=== PATIENT | female | born 1970 | race Caucasian/White ===

== ENCOUNTER 2016-12-07 20:09 | Emergency (ER) | payer SELFPAY ==
[~2016-12-07] VITALS: Ht 157.5 cm; Wt 88.0 kg
[~2016-12-07 20:09] MED LIST: NO MEDS; TYLENOL
[2016-12-08] MEDS ORDERED: DIPHENHYDRAMINE 25MG CAPSULE PO ONE (03:45)
[2016-12-08] MEDS ORDERED: METOCLOPRAMIDE HCL 10MG TABLET PO ONE (03:45)
[2016-12-08] MEDS ORDERED: KETOROLAC 60MG/2ML VIAL IM ONE (03:45)
[2016-12-08 03:58] VITALS: BP 124/75
== END 2016-12-08 05:10 | disposition home or self-care (01) ==
LOC: ER 20:10
DX: R51 Headache (principal); Z98.890 Other specified postprocedural states
CPT/HCPCS: 81025; 96372; 99283; J1885; J8597; Q0163

== ENCOUNTER 2016-12-09 15:09 | Emergency (ER) | payer SELFPAY ==
[~2016-12-09] VITALS: Ht 162.6 cm; Wt 81.0 kg
[2016-12-09] MEDS ORDERED: METOCLOPRAMIDE HCL 10MG/2ML VIAL IV ONE (18:45)
[2016-12-09] MEDS ORDERED: KETOROLAC 30MG/ML VIAL IV ONE (18:45)
[2016-12-09] MEDS ORDERED: DIPHENHYDRAMINE 50MG/ML VIAL IV ONE (18:45)
[2016-12-09 19:39] LABS: BASOPHILS % 0.5 % (0.0-2.0); EOSINOPHILS % 1.2 % (0.0-5.0); HEMATOCRIT. 30.5 % (36.0-48.0); HEMOGLOBIN. 9.8 g/dL (12.0-16.0); LYMPHOCYTES % 44.6 % (20.0-50.0); MEAN CORPUSCULAR HEMOGLOBIN 24.3 pg (28.0-32.0); MEAN PLATELET VOLUME 7.1 fl (7.4-10.4); MONOCYTES % 5.3 % (2.0-8.0); NEUTROPHILS % 48.4 % (40.0-76.0); PLATELET 255 x1000/uL (130-400); RED BLOOD CELL COUNT 4.01 mill/uL (4.2-5.4); RED CELL DISTRIBUTION WIDTH 17.5 % (11.6-14.6)
[2016-12-09 19:40] LABS: CHLORIDE 107 mEq/L (98-107)
[2016-12-09 19:47] LABS: CARBON DIOXIDE 26 mEq/L (21-32)
[2016-12-09 19:50] VITALS: BP 133/72
== END 2016-12-09 22:00 | disposition home or self-care (01) ==
LOC: ER 16:27
DX: R51 Headache (principal); R42 Dizziness and giddiness; R20.0 Anesthesia of skin
CPT/HCPCS: 36415; 70450; 80048; 81025; 85025; 96374; 96375; 99285; J1200; J1885; J2765

== ENCOUNTER 2017-04-18 21:10 | Emergency (ER) | payer SELFPAY ==
[~2017-04-18] VITALS: Ht 157.5 cm; Wt 92.0 kg
[2017-04-19 00:15] VITALS: BP 137/62
== END 2017-04-19 01:05 | disposition home or self-care (01) ==
LOC: ER 22:33
DX: J06.9 Acute upper respiratory infection, unspecified (principal)
CPT/HCPCS: 81025; 99283

== ENCOUNTER 2021-06-03 15:53 | Emergency (ER) | payer MEDICAID ==
[~2021-06-03] VITALS: Ht 157.5 cm; Wt 100.0 kg
[2021-06-03 15:56] VITALS: BP 164/101
[2021-06-03] MEDS ORDERED: BACITRACIN ZINC OINT UDPKT TOP ONE (16:45)
[2021-06-03] MEDS ORDERED: LIDOCAINE HCL/EPINEPHRINE 1%-EPI 1:100,000 20 ML VIAL INFIL ONE (16:45)
[2021-06-03] MEDS ORDERED: ACETAMINOPHEN 325MG TABLET PO ONE (16:45)
[2021-06-03] MEDS ORDERED: TETANUS, DIPHTHERIA, PERTUSSIS VAC/PF 0.5ML (>10YR OLD) IM ONE (16:45)
[2021-06-03] MEDS ORDERED: BO1 TP (17:14)
== END 2021-06-03 17:38 | disposition home or self-care (01) ==
LOC: ER 15:53
DX: S81.812A Laceration without foreign body, left lower leg, initial encounter (principal); W26.8XXA Contact with other sharp object(s), not elsewhere classified, initial encounter; Y93.G3 Activity, cooking and baking; Y92.030 Kitchen in apartment as the place of occurrence of the external cause; E11.9 Type 2 diabetes mellitus without complications
CPT/HCPCS: 12002; 90471; 90715; 99283; J3490

== ENCOUNTER 2021-06-06 19:37 | Emergency (ER) | payer MEDICAID ==
[~2021-06-06] VITALS: Ht 157.5 cm; Wt 102.0 kg
[~2021-06-06 19:37] MED LIST changes: +BO1 TP
[2021-06-06 20:45] VITALS: BP 140/90
== END 2021-06-06 20:48 | disposition home or self-care (01) ==
LOC: ER 19:37
DX: T14.8XXD Other injury of unspecified body region, subsequent encounter (principal); X58.XXXD Exposure to other specified factors, subsequent encounter; E11.9 Type 2 diabetes mellitus without complications; Z98.890 Other specified postprocedural states
CPT/HCPCS: 99281

== ENCOUNTER 2021-06-16 10:58 | Inpatient (IN) | payer MEDICAID ==
[~2021-06-16] VITALS: Ht 157.5 cm; Wt 98.4 kg
[2021-06-16] MEDS ORDERED: NITROGLYCERIN 0.4MG TABLET SL SL PRN ×2 (11:15→17:00)
[2021-06-16] MEDS ORDERED: ASPIRIN 81MG TABLET PO ONE (11:15)
[2021-06-16] MEDS ORDERED: SODIUM CHLORIDE 0.9% 1,000 ML IV ONE (11:15)
[2021-06-16 11:48] LABS: BASOPHILS % 0.6 % (0.0-2.0); HEMATOCRIT. 40.8 % (36.0-48.0); HEMOGLOBIN. 13.9 g/dL (12.0-16.0); MEAN CORPUSCULAR HEMOGLOBIN 28.7 pg (28.0-32.0); MEAN CORPUSCULAR VOLUME 84.2 fL (81.0-99.0); MEAN PLATELET VOLUME 7.5 fl (7.4-10.4); NEUTROPHILS % 44.4 % (40.0-76.0); PLATELET 204 x1000/uL (130-400); RED BLOOD CELL COUNT 4.85 mill/uL (4.2-5.4); RED CELL DISTRIBUTION WIDTH 13.5 % (11.6-14.6)
[2021-06-16 11:55] LABS: CHLORIDE 104 mEq/L (98-107)
[2021-06-16 12:08] LABS: BETA HYDROXYBUTYRATE 0.1 mMol/L (0.0-0.3)
[2021-06-16] MEDS ORDERED: INSULIN REGULAR (HUMULIN R) 300UNITS/3ML VIAL SUBCUT ONE (13:30)
[2021-06-16 16:49] LABS: HCG SCREEN NEGATIVE
[2021-06-16] MEDS ORDERED: IPRATROPIUM/ALBUTEROL 0.5-3(2.5)MG/3ML NEB NEB PRN (17:00)
[2021-06-16] MEDS ORDERED: GUAIFENESIN 200MG/10ML SUGAR FREE UDC PO PRN (17:00)
[2021-06-16] MEDS ORDERED: ACETAMINOPHEN 325MG TABLET PO PRN (17:00)
[2021-06-16] MEDS ORDERED: NA PHOS,M-B/NA PHOS,DI-BA ENEMA 118ML PR PRN (17:00)
[2021-06-16] MEDS ORDERED: ENOXAPARIN 40MG/0.4ML SYR SUBCUT SCH (17:00)
[2021-06-16] MEDS ORDERED: MAGNESIUM/ALUMINUM HYDROXIDE/SIMETHICONE 30ML UDC PO PRN (17:00)
[2021-06-16] MEDS ORDERED: ZOLPIDEM TARTRATE 5MG TABLET PO PRN (17:00)
[2021-06-16] MEDS ORDERED: DEXTROSE 50% WATER 50ML SYRINGE IV PRN (17:00)
[2021-06-16] MEDS ORDERED: DOCUSATE SODIUM 100MG CAPSULE PO PRN (17:00)
[2021-06-16] MEDS ORDERED: CLONIDINE 0.1MG TABLET PO PRN (17:00)
[2021-06-16] MEDS ORDERED: ONDANSETRON HCL 4MG/2ML INJ IV PRN (17:00)
[2021-06-16] MEDS: ENOXAPARIN 30MG/0.3ML SYR SUBCUT SCH (17:25)
[2021-06-16] MEDS: KETOROLAC 15MG/ML VIAL IV PRN (17:25)
[2021-06-16] MEDS: BLOOD SUGAR DIAGNOSTIC STRIP TEST SCH ×2 (17:34→21:16)
[2021-06-16] MEDS: INSULIN LISPRO 100 UNITS/ML SUBCUT SCH ×2 (17:40→21:00)
[2021-06-16 17:58] LABS: ETHANOL BLOOD < 10 mg/dL
[2021-06-16 18:00] LABS: TOTAL IRON BINDING CAPACITY 298 ug/dL (250-450)
[2021-06-16 18:04] LABS: T4 FREE 0.91 ng/dL (0.76-1.46)
[2021-06-16 18:11] LABS: VITAMIN B12 SERUM 1003 pg/mL (211-911)
[2021-06-16 18:13] LABS: FOLIC ACID (FOLATE) SERUM > 20.00 ng/mL (>5.38)
[2021-06-16] MEDS: METOPROLOL TARTRATE 25MG TABLET PO SCH (21:16)
[2021-06-16] MEDS: FAMOTIDINE 20MG TABLET PO SCH (21:16)
[2021-06-16] MEDS: INSULIN GLARGINE 100 UNITS/ML SUBCUT SCH (22:00)
[2021-06-16 22:27] LABS: CREATINE KINASE 67 IU/L (26-192)
[2021-06-16 22:28] LABS: CREATINE KINASE MB FRACTION 1.2 ng/mL (0.5-3.6)
[2021-06-17] VITALS (9 sets, daily range): BP systolic 131–148; BP diastolic 71–90
[2021-06-17 06:27] LABS: BASOPHILS % 0.5 % (0.0-2.0); EOSINOPHILS % 2.5 % (0.0-5.0); HEMATOCRIT. 36.6 % (36.0-48.0); HEMOGLOBIN. 12.7 g/dL (12.0-16.0); LYMPHOCYTES % 50.9 % (20.0-50.0); MEAN CORPUSCULAR HEMOGLOBIN 29.8 pg (28.0-32.0); MEAN CORPUSCULAR VOLUME 85.6 fL (81.0-99.0); MEAN PLATELET VOLUME 7.6 fl (7.4-10.4); MONOCYTES % 5.7 % (2.0-8.0); NEUTROPHILS % 40.4 % (40.0-76.0); PLATELET 189 x1000/uL (130-400); RED BLOOD CELL COUNT 4.27 mill/uL (4.2-5.4); RED CELL DISTRIBUTION WIDTH 13.6 % (11.6-14.6)
[2021-06-17] MEDS: ENOXAPARIN 30MG/0.3ML SYR SUBCUT SCH ×2 (06:29→17:14)
[2021-06-17 06:39] LABS: CHLORIDE 109 mEq/L (98-107)
[2021-06-17] MEDS: BLOOD SUGAR DIAGNOSTIC STRIP TEST SCH ×4 (06:45→20:31)
[2021-06-17 06:47] LABS: PHOSPHORUS 3.6 mg/dL (2.5-4.9)
[2021-06-17 06:49] LABS: CREATINE KINASE 56 IU/L (26-192)
[2021-06-17 06:52] LABS: CREATINE KINASE MB FRACTION 1.3 ng/mL (0.5-3.6)
[2021-06-17] MEDS: INSULIN LISPRO 100 UNITS/ML SUBCUT SCH ×4 (07:00→20:48)
[2021-06-17] MEDS: METOPROLOL TARTRATE 25MG TABLET PO SCH ×2 (08:34→20:43)
[2021-06-17] MEDS: FAMOTIDINE 20MG TABLET PO SCH ×2 (08:34→20:42)
[2021-06-17] MEDS: ASPIRIN 325MG EC TABLET PO SCH (08:34)
[2021-06-17] MEDS: ACETAMINOPHEN 325MG TABLET PO PRN ×2 (09:20→20:42)
[2021-06-17] MEDS: INSULIN GLARGINE 100 UNITS/ML SUBCUT SCH (22:00)
[2021-06-17] MEDS: KETOROLAC 15MG/ML VIAL IV PRN (23:59)
[2021-06-18] VITALS: BP 131/88
[2021-06-18 04:00] VITALS: BP 137/83
[2021-06-18] MEDS: ENOXAPARIN 30MG/0.3ML SYR SUBCUT SCH (05:49)
[2021-06-18] MEDS: BLOOD SUGAR DIAGNOSTIC STRIP TEST SCH (05:52)
[2021-06-18] MEDS: INSULIN LISPRO 100 UNITS/ML SUBCUT SCH (05:56)
[2021-06-18 08:00] VITALS: BP 152/80
[2021-06-18] MEDS: ASPIRIN 325MG EC TABLET PO SCH (08:59)
[2021-06-18] MEDS: FAMOTIDINE 20MG TABLET PO SCH (08:59)
[2021-06-18] MEDS: ACETAMINOPHEN 325MG TABLET PO PRN (08:59)
[2021-06-18] MEDS: METOPROLOL TARTRATE 25MG TABLET PO SCH (09:00)
[2021-06-18 11:06] VITALS: BP 152/80
== END 2021-06-18 11:40 | disposition home or self-care (01) | DRG 420 ==
LOC: ER 10:58 → 8WST 16:29 → ENRESERV 23:00
PROVIDERS: ADMIT Internal Medicine; ATTEND Internal Medicine
DX: E11.00 Type 2 diabetes mellitus with hyperosmolarity without nonketotic hyperglycemic-hyperosmolar coma (NKHHC) (principal); E66.9 Obesity, unspecified; Z85.3 Personal history of malignant neoplasm of breast; Z79.899 Other long term (current) drug therapy; Z98.891 History of uterine scar from previous surgery; Z68.39 Body mass index [BMI] 39.0-39.9, adult
CPT/HCPCS: 36415; 71045; 80053; 80061; 80320; 82010; 82550; 82553; 82607; 82746; 82962; 83036; 83540; 83550; 83735; 83880; 83930; 84100; 84439; 84443; 84484; 84703; 85025; 85379; 93005; 93306; 93970; 99285; J1650; J1815; J1885; J7030; G0480